=== PATIENT | male | born 1980 | race Two or more races ===

== ENCOUNTER 2017-02-28 15:06 | Emergency (ER) | payer MEDICAID ==
--- NOTE | 2017-02-28 15:24 | Emergency Department Record ---
History of Present Illness - General Chief Complaint: Seizures Stated Complaint: SEIZURE Time Seen by Provider: 02/28/17 15:19 Source: Patient, EMS Mode of Arrival: EMS Limitations: No limitations - History of Present Illness Initial Comments: 36 yo male presents after a witness seizure. He was on the floor. He was given Versed by EMS. On arrival he is speaking. He doesn't recall the events. He denies and pain. He states he has had seizures "a long time". He states his last seizure was months ago. He does not recall his doctor. Family not present on arrival. No urinary incontinence. MD Complaint: Seizure Onset/Timin -: Minutes(s) Description of Episode: Bladder incontinence Duration of Episode: 2 -: Minutes(s) Witnessed: Yes - by bystander Seizure History: Known seizure disorder Place: Home Possible Precipitating Event: None Treatments Prior to Arrival: Benzodiazepines - [place] Coma Scale Eye Response: (4) Open spontaneously Motor Response: (6) Obeys commands Verbal Response: (5) Oriented [place] Total: 15 - Related Data Home Medications Medication Instructions Recorded Confirmed Last Taken Lamotrigine [Lamictal] 200 mg PO DAILY 08/09/14 02/28/17 1 Day Ago ~02/27/17 Lurasidone HCl [Latuda] 80 mg PO QD tab 05/19/16 02/28/17 1 Day Ago ~02/27/17 Topiramate [Topamax] 150 mg PO DAILY tab 05/19/16 02/28/17 1 Day Ago ~02/27/17 Alprazolam [Xanax] 1 mg PO QHS 02/28/17 02/28/17 1 Day Ago ~02/27/17 Allergies Allergy/AdvReac Type Severity Reaction Status Date / Time No Known Drug Allergies Allergy Verified 02/28/17 15:14 Travel Screening - Travel/Exposure Within Last 30 Days Have you traveled within the last 30 days?: No - Travel/Exposure Within Last Year Have you traveled outside the [place] in the last year?: No - Additonal Travel Details Have you been exposed to anyone with a communicable illness?: No - Travel Symptoms Symptom Screening: None Review of Systems Constitutional: Denies: Chills, Fever, Malaise, Weakness Eyes: Denies: Eye discharge ENT: Denies: Congestion Respiratory: Denies: Cough, Dyspnea Cardiovascular: Denies: Chest pain, Syncope Endocrine: Denies: Fatigue Gastrointestinal: Denies: Abdominal pain, Diarrhea, Nausea, Vomiting Genitourinary: Denies: Incontinence, Retention Musculoskeletal: Denies: Arthralgia, Back pain, Myalgia Skin: Denies: Bruising, Change in color, Rash Neurological: Denies: Headache Psychiatric: Denies: Anxiety Hematological/Lymphatic: Denies: Blood Clots, Easy bleeding, Easy bruising, Swollen glands Past Medical History - SOCIAL HISTORY Smoking Status: Light tobacco smoker (<10/day) Alcohol Use: None Drug Use: None - RESPIRATORY Hx Respiratory Disorders: No - CARDIOVASCULAR Hx Cardio Disorders: No - NEURO Hx Neuro Disorders: Yes Hx Seizures: Yes (last one before todays was months) - GI Hx GI Disorders: No - Hx Genitourinary Disorders: No - ENDOCRINE Hx Endocrine Disorders: No - MUSCULOSKELETAL Hx Musculoskeletal Disorders: No - PSYCH Hx Psych Problems: Yes Hx Anxiety: Yes Hx Depression: Yes - HEMATOLOGY/ONCOLOGY Hx Hematology/Oncology Disorders: No Family Medical History Any Significant Family History?: Yes Hx Diabetes: Father, Grandparents Physical Exam - General General Appearance: Alert, Oriented x3, Cooperative Limitations: Altered mental status (mild post ictal still) - Head Head exam: Atraumatic, Normocephalic, Normal inspection - Eye Eye exam: Normal appearance, Conjunctival injection. negative: Periorbital swelling - ENT ENT exam: Normal exam, Mucous membranes moist Ear exam: Normal external inspection Nasal Exam: Normal inspection Mouth exam: Normal external inspection Teeth exam: Normal inspection - Neck Neck exam: Normal inspection, Full ROM. negative: Tenderness - Respiratory Respiratory exam: Normal lung sounds bilaterally. negative: Respiratory distress - Cardiovascular Cardiovascular Exam: Regular rate, Normal rhythm, Normal heart sounds - GI/Abdominal GI/Abdominal exam: Soft. negative: Tenderness - Rectal Rectal exam: Deferred - exam: Deferred - Extremities Extremities exam: Normal inspection. negative: Pedal edema - Back Back exam: Reports: Normal inspection - Neurological Neurological exam: Alert, Normal gait, Oriented X3, Reflexes normal - Psychiatric Psychiatric exam: Normal affect, Normal mood. negative: Agitated, Anxious - Skin Skin exam: Dry, Intact, Normal color, Warm Course Vital Signs 02/28/17 15:07 Pulse Rate 117 H Respiratory 22 Rate Blood Pressure 132/81 Pulse Ox 99 - Reevaluation(s) Reevaluation #1: EMR reviewed Multiple prior visits for his seizures on EMR. 02/28/17 15:24 Reevaluation #2: The patient was rechecked. he is answering all questions but not states has a headache. His left arm shakes but he is alert, no confusion, lifts hand to point to painful area on head. He states his neurologist is at [facility]. 02/28/17 15:41 02/28/17 16:07 On recheck the patient will still answer questions appropriate but he still has a tremor or shake to the left arm that he states he can not control which is delaying CT. He remains awake during this shaking. His fiance Monica called. She reports that he does have a prior history of head injury. Reevaluation #3: Labs reviewed No acute changes on the CBC HCO3 18 CW seizure. 02/28/17 16:31 02/28/17 17:19 The patient returned form CT and had a witnessed 1 minute generalized seizure Ativan and Fosphenytoin ordered 02/28/17 17:27 The HCT was negative for acute process 02/28/17 17:35 No visible current seizure activity Family requests [facility] for transfer [facility] Contacted. Reevaluation #4: The patient nodded his head and had purposeful movement with arms. Dr Awad accept the patient in the ED 02/28/17 17:52 Reevaluation #5: On recheck the patient is alert, speaking in full sentences, NO confusion. EMS ready for transfer He is the most alert at this time than compared to earlier Stable for transfer 02/28/17 18:21 Medical Decision Making - Lab Data Result diagrams: 02/28/17 13:20 02/28/17 13:20 Disposition Disposition: Transfer Clinical Impression: Seizures Disposition: Acute Care Hospital Transfer Transfer To: [facility] Reason For Transfer: Status Epilepticus Accepting Physician: Molly Awad Time Discussed w/Accepting Physician: 17:47 Condition: (3) Guarded Forms: Patient Portal Access Time of Disposition: 17:28 Quality - Quality Measures Quality Measures: N/A - Blood Pressure Screening View Details: Yes Blood Pressure Classification: Pre-Hypertensive BP Reading Systolic Measurement: 132 Diastolic Measurement: 81 Screening for High Blood Pressure: < Pre-Hypertensive BP, F/U Documented > [ G8950] Pre-Hypertensive Follow-up Interventions: Referral to alternative/primary care provider.
[2017-02-28] MEDS: 0.9 % SODIUM CHLORIDE 1,000 ML BAG IV ONE (15:25)
[2017-02-28 15:31] LABS: BASO % 0.3 % (0-6); EOS % 0.2 % (0-6); GRAN % 65.9 % (47-80); HEMATOCRIT 44.4 % (42.0-52.0); LYMPH % 26.9 % (16-45); MEAN CELL VOLUME 87.4 fl (81-97); MEAN CORPUSCULAR HEMOGLOBIN 31.5 pg (27-33); MEAN PLATELET VOLUME 9.8 fl (7.4-10.4); MONO % 6.7 % (0-9); PLATELET COUNT 387 K/uL (130-400); RED BLOOD COUNT 5.08 M/uL (4.40-5.70); RED CELL DISTRIBUTION WIDTH 12.9 % (11.5-14.5); WHITE BLOOD COUNT W/O DIFF 9.4 K/uL (4.2-12.2)
[2017-02-28 15:45] LABS: LACTIC ACID 4.6 mmol/L (0.7-2.1)
[2017-02-28] MEDS: LORAZEPAM 2 MG/ML VIAL IV ONE ×3 (15:46→17:44)
[2017-02-28 15:47] LABS: ALB/GLOB RATIO 1.6 (1.1-1.8); ALBUMIN 4.7 gm/dL (3.5-5.0); ALT/SGPT 64 U/L (21-72); AST/SGOT 35 U/L (17-59); BLOOD UREA NITROGEN 13 mg/dL (9-20); EST GLOMERULAR FILTRATION RATE > 60 ml/min; GLUCOSE,RANDOM 100 mg/dL (70-110); PARTIAL THROMBOPLASTIN TIME 30.5 SECONDS (24.5-39.1); PROTHROMBIN TIME (PATIENT) 10.8 SECONDS (9.5-12.1); TOTAL PROTEIN 7.7 gm/dL (6.3-8.2)
[2017-02-28 15:48] LABS: ALKALINE PHOSPHATASE 111 U/L (38-126)
[2017-02-28] MEDS: FOSPHENYTOIN SODIUM 500 MG/10 ML IV ONE (17:42)
[2017-02-28] MEDS: ACETAMINOPHEN 1,000 MG/100 ML BTL IVPB ONE (18:27)
--- NOTE | 2017-03-02 11:41 | CT SCAN REPORT ---
EXAM: HEAD CT WITHOUT CONTRAST HISTORY: HEAD INJURY WITH SEIZURE, UNRESPONSIVE. TECHNIQUE: Axial CT scan of the head was performed without IV contrast. Comparison: Head CT 09/09/15. Encounter: Initial. FINDINGS: No definite acute intracranial hemorrhage identified. No focal mass effect or midline shift apparent. No definite acute infarct or intracranial mass lesion is seen. Some membrane thickening inferiorly in the visualized left maxillary antrum. No depressed calvarial fracture is evident. IMPRESSION: 1. NO DEFINITE ACUTE INTRACRANIAL HEMORRHAGE OR FOCAL MASS EFFECT EVIDENT. 2. SOME MEMBRANE THICKENING INFERIORLY IN THE LEFT MAXILLARY ANTRUM. JOB NUMBER: [id number] MTDD
== END 2017-02-28 18:35 | disposition short-term general hospital (02) ==
LOC: ER 15:06
DX: G40.901 Epilepsy, unspecified, not intractable, with status epilepticus (principal); R51 Headache
CPT/HCPCS: 99285 ×2; 96376; 96374; 96375; 96361; 83605; 85025; 85730; 85610; 80053; 70450; Q2009; J2060; J7030

== ENCOUNTER 2017-10-07 09:52 | Emergency (ER) | payer SELFPAY ==
--- NOTE | 2017-10-07 10:00 | Emergency Department Record ---
History of Present Illness - General Chief Complaint: Laceration(s) Stated Complaint: RIGHT HAND LAC Time Seen by Provider: 10/07/17 09:57 Source: Patient Mode of Arrival: Ambulatory Limitations: No limitations - History of Present Illness Initial Commments: 36 yo male presents after injuring his right hand on sheet metal at work. He sliced the palm on an exposed edge of the metal. No loss of ROM or sensation. He is unsure of the last tetanus update. No other injuries. -: Minutes(s) Extremity Location: Right: Hand Place: Work Context: Accidental Associated Symptoms: None - [place] Coma Scale Eye Response: (4) Open spontaneously Motor Response: (6) Obeys commands Verbal Response: (5) Oriented [place] Total: 15 - Related Data Previous Rx's Medication Instructions Recorded Cephalexin [Keflex] 500 mg PO TID #21 cap 10/07/17 Hydrocodone/Acetaminophen [[place]uss[place] 1 each PO Q6H #15 tablet 10/07/17 5-325 Tablet] Allergies Allergy/AdvReac Type Severity Reaction Status Date / Time No Known Drug Allergies Allergy Verified 10/07/17 10:05 Review of Systems Constitutional: Denies: Chills, Fever, Malaise, Weakness Eyes: Denies: Eye discharge ENT: Denies: Congestion, Ear pain Respiratory: Denies: Cough Cardiovascular: Denies: Chest pain Endocrine: Denies: Fatigue Gastrointestinal: Denies: Abdominal pain, Diarrhea, Nausea, Vomiting Genitourinary: Denies: Dysuria, Frequency Musculoskeletal: Reports: Myalgia. Denies: Arthralgia, Back pain Skin: Reports: Other (Laceration). Denies: Bruising, Change in color, Rash Neurological: Denies: Headache Psychiatric: Denies: Anxiety Hematological/Lymphatic: Denies: Easy bleeding, Easy bruising, Swollen glands Past Medical History - SOCIAL HISTORY Smoking Status: Light tobacco smoker (<10/day) Drug Use: None - RESPIRATORY Hx Respiratory Disorders: No - CARDIOVASCULAR Hx Cardio Disorders: No - NEURO Hx Neuro Disorders: Yes Hx Seizures: Yes (last one before todays was months) - GI Hx GI Disorders: No - Hx Genitourinary Disorders: No - ENDOCRINE Hx Endocrine Disorders: No - MUSCULOSKELETAL Hx Musculoskeletal Disorders: No - PSYCH Hx Psych Problems: Yes Hx Anxiety: Yes Hx Depression: Yes - HEMATOLOGY/ONCOLOGY Hx Hematology/Oncology Disorders: No Family Medical History Hx Diabetes: Father, Grandparents Physical Exam - General General Appearance: Alert, Oriented x3, Cooperative, No acute distress Limitations: No limitations - Head Head exam: Normal inspection - Eye Eye exam: Normal appearance - ENT ENT exam: Normal exam Ear exam: Normal external inspection Nasal Exam: Normal inspection Mouth exam: Normal external inspection - Neck Neck exam: Normal inspection - Respiratory Respiratory exam: Normal lung sounds bilaterally. negative: Respiratory distress - Cardiovascular Cardiovascular Exam: Regular rate, Normal rhythm, Normal heart sounds Peripheral Pulses: 2+: Radial (R) - Rectal Rectal exam: Deferred - exam: Deferred - Extremities Extremities exam: Normal capillary refill, Other (5cm laceration). negative: Normal inspection Image of Hand: 1 - 5cm linear laceration, clean, no visible FB - Neurological Neurological exam: Alert, Oriented X3. negative: Motor sensory deficit - Psychiatric Psychiatric exam: Normal affect, Normal mood - Skin Skin exam: Dry, Intact, Normal color, Warm Course - Reevaluation(s) Reevaluation #1: Procedure 5 cm palm laceration Lidocaine with 4ml local ShurClens soak Followed by 500 ml NS irrigation The wound was explored to the base in bloodless field No FB No tendon injury visible through full ROM Prolene 3-0 suture used #10 Good wound approximation after suture remains with full index and thumb ROM, apposition of thumb to all fingers. We discussed risks and healing We discussed signs and symptoms of infection and reasons to return to the ED 10/07/17 10:32 Disposition Disposition: Discharge Clinical Impression: Hand laceration Disposition: Home, Self-Care Condition: (1) Good Instructions: Laceration (ED) Additional Instructions: Return to the ER for a laceration check if you have any pain, redness, pus, or any concerns about infection Take the Keflex as directed No lifting or work with the right hand until the sutures are removed Use the splint for support and comfort You may take it off daily to clean the hand Prescriptions: Cephalexin [Keflex] 500 mg PO TID #21 cap Hydrocodone/Acetaminophen [Husser 5-325 Tablet] 1 each PO Q6H #15 tablet Forms: Patient Portal Access Time of Disposition: 10:57 Quality - Quality Measures Quality Measures: N/A - Blood Pressure Screening Does Patient Have Any of the Following: No Blood Pressure Classification: Hypertensive Reading Systolic Measurement: 141 Diastolic Measurement: 77 Screening for High Blood Pressure: < Pre-Hypertensive BP, F/U Documented > [ G8950] Pre-Hypertensive Follow-up Interventions: Referral to alternative/primary care provider.
[2017-10-07] MEDS ORDERED: IBUPROFEN 600 MG TABLET PO ONE (10:16)
[2017-10-07] MEDS ORDERED: HYDROCODONE/APAP 7.5/325MG TABLET PO ONE (10:32)
[2017-10-07] MEDS ORDERED: CEPHALEXIN 500 MG CAPSULE PO STA (10:56)
[2017-10-07] MEDS ORDERED: Diph,Pert(Acell),Tet Vac 0.5 ML SYR IM ONE (10:56)
== END 2017-10-07 11:38 | disposition home or self-care (01) ==
LOC: ER 09:52
DX: S61.411A Laceration without foreign body of right hand, initial encounter (principal); F17.210 Nicotine dependence, cigarettes, uncomplicated; W45.8XXA Other foreign body or object entering through skin, initial encounter; Y92.63 Factory as the place of occurrence of the external cause; Y99.0 Civilian activity done for income or pay
CPT/HCPCS: 12002; 90715; 96372; 99283

== ENCOUNTER 2017-10-12 13:13 | Emergency (ER) | payer SELFPAY ==
[2017-10-12] MEDS ORDERED: HYDROCODONE/APAP 5/325MG TABLET PO ONE (14:54)
[2017-10-12] MEDS ORDERED: AMOXICILLIN/POTASSIUM CLAV 875MG/125MG TABLET PO ONE (14:55)
--- NOTE | 2017-10-12 15:27 | Emergency Department Record ---
History of Present Illness - General Chief Complaint: Wound, check Stated Complaint: RT HAND SUTURES BLEEDING/PAIN Time Seen by Provider: 10/12/17 13:26 Source: Patient Mode of arrival: Ambulatory Limitations: No limitations - History of Present Illness Initial Comments: pt had sutures placed 5 days ago in a 5cm laceration on his r palm. he finished his abx and is c/o increased pain and swelling and drainage. MD Complaint: Wound re-check Onset/Timin -: Days(s) Initial Visit For: Laceration Returns Today for: Wound recheck Symptoms Since Prior Visit: Worsening pain, Other Treatments Prior to Arrival: Given antibiotics on initial visit - Related Data Previous Rx's Medication Instructions Recorded Cephalexin [Keflex] 500 mg PO TID #21 cap 10/07/17 Hydrocodone/Acetaminophen [[place] 1 each PO Q6H #15 tablet 10/07/17 5-325 Tablet] Amoxicillin/Potassium Clav 1 each PO BID #14 tablet 10/12/17 [Augmentin 875Mg/125Mg] Hydrocodone/Acetaminophen [[place] 1 each PO Q6HR #6 tablet 10/12/17 5-325 Tablet] Allergies Allergy/AdvReac Type Severity Reaction Status Date / Time No Known Drug Allergies Allergy Verified 10/12/17 13:18 Travel Screening - Travel/Exposure Within Last 30 Days Have you traveled within the last 30 days?: No - Travel/Exposure Within Last Year Have you traveled outside the [place] in the last year?: No - Additonal Travel Details Have you been exposed to anyone with a communicable illness?: No - Travel Symptoms Symptom Screening: None Review of Systems Reviewed: No additional complaints except as noted below Constitutional: Reports: As per HPI. Denies: Chills, Fever, Malaise, Night sweats, Weakness, Weight change Eyes: Reports: As per HPI. Denies: Eye discharge, Eye pain, Photophobia, Vision change ENT: Reports: As per HPI. Denies: Congestion, Dental pain, Ear pain, Epistaxis , Hearing loss, Throat pain Respiratory: Reports: As per HPI. Denies: Cough, Dyspnea, Hemoptysis, Stridor, Wheezes Cardiovascular: Reports: As per HPI. Denies: Arrhythmia, Chest pain, Dyspnea on exertion, Edema, Murmurs, Orthopnea, Palpitations, Paroxysmal nocturnal dyspnea, Rheumatic Fever, Syncope Endocrine: Reports: As per HPI. Denies: Fatigue, Heat or cold intolerance, Polydipsia, Polyuria Gastrointestinal: Reports: As per HPI. Denies: Abdominal pain, Constipation, Diarrhea, Hematemesis, Hematochezia, Melena, Nausea, Vomiting Genitourinary: Reports: As per HPI. Denies: Dysuria, Frequency, Hematuria, Incontinence, Retention, Testicular pain, Testicular mass, Urgency Musculoskeletal: Reports: As per HPI. Denies: Arthralgia, Back pain, Gout, Joint swelling, Myalgia, Neck pain Skin: Reports: As per HPI. Denies: Bruising, Change in color, Change in hair/ nails, Lesions, Pruritus, Rash Neurological: Reports: As per HPI. Denies: Abnormal gait, Confusion, Headache, Numbness, Paresthesias, Seizure, Tingling, Tremors, Vertigo, Weakness Psychiatric: Reports: As per HPI. Denies: Anxiety, Auditory hallucinations, Depression, Homicidal thoughts, Suicidal thoughts, Visual hallucinations Hematological/Lymphatic: Reports: As per HPI. Denies: Anemia, Blood Clots, Easy bleeding, Easy bruising, Swollen glands Past Medical History - SOCIAL HISTORY Smoking Status: Former smoker Alcohol Use: None Drug Use: None - RESPIRATORY Hx Respiratory Disorders: No - CARDIOVASCULAR Hx Cardio Disorders: No - NEURO Hx Neuro Disorders: Yes Hx Seizures: Yes (last one before todays was months) - GI Hx GI Disorders: No - Hx Genitourinary Disorders: No - ENDOCRINE Hx Endocrine Disorders: No - MUSCULOSKELETAL Hx Musculoskeletal Disorders: No - PSYCH Hx Psych Problems: Yes Hx Anxiety: Yes Hx Depression: Yes - HEMATOLOGY/ONCOLOGY Hx Hematology/Oncology Disorders: No Family Medical History Any Significant Family History?: Yes Hx Diabetes: Father, Grandparents Physical Exam - General General Appearance: Alert, Oriented x3, Cooperative, No acute distress - Head Head exam: Normal inspection - Eye Eye exam: Normal appearance, PERRL, EOMI Pupils: Normal accommodation - ENT ENT exam: Normal exam, Mucous membranes moist, Normal external ear exam, Normal orophraynx Ear exam: Normal external inspection. negative: External canal tenderness Nasal Exam: Normal inspection. negative: Discharge, Sinus tenderness Mouth exam: Normal external inspection, Tongue normal Teeth exam: Normal inspection. negative: Dental caries Throat exam: Normal inspection. negative: Tonsillar erythema, Tonsillar exudate - Neck Neck exam: Normal inspection, Full ROM. negative: Tenderness - Respiratory Respiratory exam: Normal lung sounds bilaterally. negative: Respiratory distress - Cardiovascular Cardiovascular Exam: Regular rate, Normal rhythm, Normal heart sounds - GI/Abdominal GI/Abdominal exam: Soft, Normal bowel sounds. negative: Tenderness - Rectal Rectal exam: Deferred - exam: Deferred - Extremities Extremities exam: Normal inspection, Full ROM, Normal capillary refill, Tenderness Image of Hand: 1 - 10 sutures, swelling, erythema, tenderness - Back Back exam: Reports: Normal inspection, Full ROM. Denies: Muscle spasm, Rash noted, Tenderness - Neurological Neurological exam: Alert, CN II-XII intact, Normal gait, Oriented X3, Reflexes normal - Psychiatric Psychiatric exam: Normal affect, Normal mood - Skin Skin exam: Dry, Intact, Normal color, Warm Course Vital Signs 10/12/17 13:25 Temperature 97.9 F Pulse Rate 82 Respiratory 20 Rate Blood Pressure 138/88 Pulse Ox 98 - Reevaluation(s) Reevaluation #1: 10/12/17 15:30 d/w dr [place] Reevaluation #2: 10/12/17 15:30 2 sutures removed Disposition Disposition: Discharge Clinical Impression: Encounter for wound re-check, Wound infection, posttraumatic Disposition: Home, Self-Care Condition: (1) Good Instructions: Wound Infection (ED) Additional Instructions: follow up with family doctor . return sooner if worse. keep clean. Prescriptions: Hydrocodone/Acetaminophen [[place] 5-325 Tablet] 1 each PO Q6HR #6 tablet Amoxicillin/Potassium Clav [Augmentin 875Mg/125Mg] 1 each PO BID #14 tablet Forms: Patient Portal Access, Return to Work/School Quality - Quality Measures Quality Measures: N/A - Blood Pressure Screening Does Patient Have Any of the Following: No Blood Pressure Classification: Pre-Hypertensive BP Reading Systolic Measurement: 138 Diastolic Measurement: 88 Screening for High Blood Pressure: < Pre-Hypertensive BP, F/U Documented > [ G8950] Pre-Hypertensive Follow-up Interventions: Follow-up with rescreen every year.
--- NOTE | 2017-10-14 08:19 | RADIOLOGY REPORT ---
EXAM: RIGHT HAND HISTORY: SLICED RIGHT HAND WITH METAL FIVE DAYS AGO WITH STITCHES AT BASE OF RIGHT THUMB. POSSIBLE FOREIGN BODY. TECHNIQUE: Four views of the right hand were obtained. Comparison: No prior right hand series. Encounter: Initial. FINDINGS: The right hand appears intact with no fracture or dislocation seen. No definite opaque foreign body identified although some foreign bodies will be radiographically indistinguishable from the adjacent soft tissues. IMPRESSION: NO DEFINITE FRACTURE OR OPAQUE FOREIGN BODY IDENTIFIED IN THE RIGHT HAND. JOB NUMBER: [id number] [facility]
== END 2017-10-12 16:09 | disposition home or self-care (01) ==
LOC: ER 13:13
DX: T81.4XXA Infection following a procedure, initial encounter (principal); M25.541 Pain in joints of right hand; G40.909 Epilepsy, unspecified, not intractable, without status epilepticus; Z87.891 Personal history of nicotine dependence
CPT/HCPCS: 99283

== ENCOUNTER 2017-10-18 16:29 | Emergency (ER) | payer SELFPAY ==
--- NOTE | 2017-10-18 16:56 | Emergency Department Record ---
History of Present Illness - General Chief Complaint: Suture removal Stated Complaint: SUTURE REMOVAL/RT HAND Time Seen by Provider: 10/18/17 16:50 Source: Patient Mode of arrival: Ambulatory Limitations: No limitations - History of Present Illness Initial Comments: The patient is here for suture removal. He denies any problems. Complaint: Suture/staple removal Initial Visit For: Laceration Returns Today for: Staple/stitch removal Symptoms Since Prior Visit: No new symptoms Associated Symptoms: None Treatments Prior to Arrival: Dressings - Related Data Previous Rx's Medication Instructions Recorded Cephalexin [Keflex] 500 mg PO TID #21 cap 10/07/17 Hydrocodone/Acetaminophen [[place] 1 each PO Q6H #15 tablet 10/07/17 5-325 Tablet] Hydrocodone/Acetaminophen [[place] 1 each PO Q6HR #6 tablet 10/12/17 5-325 Tablet] Allergies Allergy/AdvReac Type Severity Reaction Status Date / Time No Known Drug Allergies Allergy Verified 10/18/17 16:45 Travel Screening - Travel/Exposure Within Last 30 Days Have you traveled within the last 30 days?: No Past Medical History - SOCIAL HISTORY Smoking Status: Former smoker Alcohol Use: None Drug Use: None - RESPIRATORY Hx Respiratory Disorders: No - CARDIOVASCULAR Hx Cardio Disorders: No - NEURO Hx Neuro Disorders: Yes Hx Seizures: Yes - GI Hx GI Disorders: No - Hx Genitourinary Disorders: No - ENDOCRINE Hx Endocrine Disorders: No - MUSCULOSKELETAL Hx Musculoskeletal Disorders: No - PSYCH Hx Psych Problems: Yes Hx Anxiety: Yes Hx Depression: Yes - HEMATOLOGY/ONCOLOGY Hx Hematology/Oncology Disorders: No Family Medical History Any Significant Family History?: Yes Hx Diabetes: Father, Grandparents Physical Exam - General General Appearance: Alert, Cooperative, No acute distress - Extremities Extremities exam: Normal inspection (The Lac is well healed. The sutures were removed with no difficulty or complications.) Course Vital Signs 10/18/17 16:45 Temperature 98.7 F Pulse Rate 92 H Respiratory 18 Rate Blood Pressure 137/97 Pulse Ox 98 Disposition Disposition: Discharge Clinical Impression: Visit for suture removal Disposition: Home, Self-Care Condition: (2) Stable Instructions: Stitches Removal (ED) Additional Instructions: Return to the ER for any problems. Forms: Patient Portal Access Time of Disposition: 16:56 Quality - Quality Measures Quality Measures: N/A - Blood Pressure Screening View Details: Yes Does Patient Have Any of the Following: No Blood Pressure Classification: Hypertensive Reading Systolic Measurement: 137 Diastolic Measurement: 97 Screening for High Blood Pressure: < First Hypertensive BP, F/U Documented > [ G8950] First Hypertensive Follow-up Interventions: Referral to alternative/primary care provider.
== END 2017-10-18 17:23 | disposition home or self-care (01) ==
LOC: ER 16:29
DX: Z48.02 Encounter for removal of sutures (principal)

== ENCOUNTER 2018-09-04 22:01 | Emergency (ER) | payer BC ==
--- NOTE | 2018-09-04 22:51 | Emergency Department Record ---
History of Present Illness - General Chief Complaint: Abdominal Pain Stated Complaint: SHARP PAIN LT SIDE Time Seen by Provider: 09/04/18 22:49 Source: Patient Mode of Arrival: Ambulatory - History of Present Illness Initial Comments: The patient states he has had left sided rib pain for the past month. Today it worsened after stretching. He states that stretching usually helps but it is worsened tonight to the point of him being sweaty when he was home, and unable to move his left arm due to movement making his ribs hurt more. He states, "it feels like a muscle spasm." He denies any trauma now or in the past month. He has pectus excavatum since and scoliosis noted on his xrays. Onset/Timin -: Month(s) Severity scale (1-10): 10 Quality: Sharp Consistency: Constant, Getting worse - Related Data Previous Rx's Medication Instructions Recorded Cyclobenzaprine HCl [Flexeril] 10 mg PO TID #15 tablet 09/04/18 Allergies Allergy/AdvReac Type Severity Reaction Status Date / Time No Known Drug Allergies Allergy Verified 09/04/18 22:12 Travel Screening - Travel/Exposure Within Last 30 Days Have you traveled within the last 30 days?: No - Travel/Exposure Within Last Year Have you traveled outside the [place] in the last year?: No - Additonal Travel Details Have you been exposed to anyone with a communicable illness?: No - Travel Symptoms Symptom Screening: None Review of Systems Reviewed: No additional complaints except as noted below Constitutional: Reports: As per HPI. Denies: Chills, Fever, Malaise, Night sweats, Weakness, Weight change Eyes: Reports: As per HPI. Denies: Eye discharge, Eye pain, Photophobia, Vision change ENT: Reports: As per HPI. Denies: Congestion, Dental pain, Ear pain, Epistaxis , Hearing loss, Throat pain Respiratory: Reports: As per HPI. Denies: Cough, Dyspnea, Hemoptysis, Stridor, Wheezes Cardiovascular: Reports: As per HPI. Denies: Arrhythmia, Chest pain, Dyspnea on exertion, Edema, Murmurs, Orthopnea, Palpitations, Paroxysmal nocturnal dyspnea, Rheumatic Fever, Syncope Endocrine: Reports: As per HPI. Denies: Fatigue, Heat or cold intolerance, Polydipsia, Polyuria Gastrointestinal: Reports: As per HPI. Denies: Abdominal pain, Constipation, Diarrhea, Hematemesis, Hematochezia, Melena, Nausea, Vomiting Genitourinary: Reports: As per HPI. Denies: Dysuria, Frequency, Hematuria, Incontinence, Retention, Testicular pain, Testicular mass, Urgency Musculoskeletal: Reports: As per HPI. Denies: Arthralgia, Back pain, Gout, Joint swelling, Myalgia, Neck pain Skin: Reports: As per HPI. Denies: Bruising, Change in color, Change in hair/ nails, Lesions, Pruritus, Rash Neurological: Reports: As per HPI. Denies: Abnormal gait, Confusion, Headache, Numbness, Paresthesias, Seizure, Tingling, Tremors, Vertigo, Weakness Psychiatric: Reports: As per HPI. Denies: Anxiety, Auditory hallucinations, Depression, Homicidal thoughts, Suicidal thoughts, Visual hallucinations Hematological/Lymphatic: Reports: As per HPI. Denies: Anemia, Blood Clots, Easy bleeding, Easy bruising, Swollen glands Past Medical History - SOCIAL HISTORY Smoking Status: Former smoker Alcohol Use: Occasional Drug Use: None - RESPIRATORY Hx Respiratory Disorders: No - CARDIOVASCULAR Hx Cardio Disorders: No - NEURO Hx Neuro Disorders: Yes Hx Seizures: Yes - GI Hx GI Disorders: No - Hx Genitourinary Disorders: No - ENDOCRINE Hx Endocrine Disorders: No - MUSCULOSKELETAL Hx Musculoskeletal Disorders: No - PSYCH Hx Psych Problems: Yes Hx Anxiety: Yes Hx Depression: Yes - HEMATOLOGY/ONCOLOGY Hx Hematology/Oncology Disorders: No Family Medical History Any Significant Family History?: No Hx Diabetes: Father, Grandparents Physical Exam - General General Appearance: Alert, Oriented x3, Cooperative, Moderate distress ( splinting holding left chest ) - Head Head exam: Normal inspection - Eye Eye exam: Normal appearance, PERRL, EOMI. negative: Conjunctival injection, Nystagmus Pupils: Normal accommodation - ENT ENT exam: Normal exam, Mucous membranes moist, Normal external ear exam, Normal orophraynx, TM's normal bilaterally Ear exam: Normal external inspection. negative: External canal tenderness Nasal Exam: Normal inspection. negative: Discharge, Sinus tenderness Mouth exam: Normal external inspection, Tongue normal Teeth exam: Normal inspection. negative: Dental caries Throat exam: Normal inspection. negative: Tonsillar erythema, Tonsillar exudate - Neck Neck exam: Normal inspection, Full ROM. negative: Lymphadenopathy, Meningismus , Tenderness - Respiratory Respiratory exam: Normal lung sounds bilaterally, Chest wall tenderness (left ribs tender laterally to minimal palpation over 4 levels mid thoracic around to anterior chest left side of sternum. No skin lesion, contusions, ecchymosis, crepitance or sub Q emphysema.), Other (Marked pectus excavatum noted). negative: Accessory muscle use, Respiratory distress - Cardiovascular Cardiovascular Exam: Normal rhythm, Normal heart sounds, Tachycardia - GI/Abdominal GI/Abdominal exam: Soft, Normal bowel sounds. negative: Tenderness - Rectal Rectal exam: Deferred - exam: Deferred - Extremities Extremities exam: Normal inspection, Full ROM, Normal capillary refill. negative: Calf tenderness, Pedal edema, Tenderness - Back Back exam: Reports: Normal inspection, Full ROM. Denies: Muscle spasm, Rash noted, Tenderness - Neurological Neurological exam: Alert, CN II-XII intact, Normal gait, Oriented X3, Reflexes normal. negative: Motor sensory deficit - Psychiatric Psychiatric exam: Normal affect, Normal mood - Skin Skin exam: Dry, Intact, Normal color, Warm Course Vital Signs 09/04/18 22:10 Temperature 98.1 F Pulse Rate [ 100 H Pulse Ox Probe] Respiratory 24 Rate Blood Pressure 142/106 [Left Arm] Pulse Ox 95 - Reevaluation(s) Reevaluation #1: After toradol and norflex patient is now able to sit upright and is no longer leaning to the side. he states he is 7/10, improved from a 10/10. Will send him home with flexeril as needed. with PCP follow up, tylenol alternated with ibuprofen. 09/04/18 23:45 Medical Decision Making - Management Options MDM Management: No Additional Work-up Planned - Data Complexity MDM Data: X-Ray Ordered and/or Reviewed (No fracture seen. Levoconvex mid- throacic scoliosis, atelectasis left lowest lateral lung, vs. scarring or infiltrate.) Disposition Disposition: Discharge Clinical Impression: Rib pain on left side, Pectus excavatum Left-sided thoracic back pain Qualifiers: Chronicity: acute Qualified Code(s): M54.6 - Pain in thoracic spine Disposition: Home, Self-Care Condition: (2) Stable Instructions: Thoracic Pain (ED), Chronic Back Pain (ED) Additional Instructions: No lifting with arms. Flexeril as directed as needed for muscle spasm. May cause drowsiness. tylenol alternated with ibuprofen as directed as needed for pain. Follow up with PCP in office for recheck. Prescriptions: Cyclobenzaprine HCl [Flexeril] 10 mg PO TID #15 tablet Quality - Quality Measures Quality Measures: N/A - Blood Pressure Screening Does Patient Have Any of the Following: No Blood Pressure Classification: Hypertensive Reading Systolic Measurement: 142 Diastolic Measurement: 106 Screening for High Blood Pressure: < Pre-Hypertensive BP, F/U Documented > [ G8950] Pre-Hypertensive Follow-up Interventions: Follow-up with rescreen every year.
[2018-09-04] MEDS ORDERED: ORPHENADRINE CITRATE 60MG/2ML VIAL IM ONE (23:04)
[2018-09-04] MEDS ORDERED: KETOROLAC 30 MG/ML VIAL IM ONE (23:04)
--- NOTE | 2018-09-06 09:13 | RADIOLOGY REPORT ---
EXAM: LEFT RIBS WITH PA CHEST HISTORY: LEFT SIDED RIB PAIN FOR THREE WEEKS. NO KNOWN INJURY. PAIN WORSENED SIGNIFICANTLY TODAY. TECHNIQUE: AP and oblique views of the left ribs are obtained as well as an upright PA view of the chest. Comparison: None. FINDINGS: There is normal bone mineralization. No definite acute fracture nor destructive bone lesion is seen. The heart is not enlarged. No pulmonary venous hypertension is seen. The lung volumes are somewhat low. There is mild linear atelectasis versus scarring in the lateral left lung base. The lungs and pleural spaces are otherwise clear. There is mild levoconvex curvature of the mid to lower thoracic spine. IMPRESSION: 1. NO ACUTE LEFT RIB FRACTURE NOR DESTRUCTIVE BONE LESION. 2. MINOR LINEAR SCARRING VERSUS ATELECTASIS IN THE LATERAL LEFT LUNG BASE. 3. MILD LEVOCONVEX CURVATURE OF THE MID TO LOWER THORACIC SPINE. JOB NUMBER: [id number] [facility]
== END 2018-09-04 23:55 | disposition home or self-care (01) ==
LOC: ER 22:01
DX: R07.81 Pleurodynia (principal); M54.6 Pain in thoracic spine; Q67.6 Pectus excavatum; Z87.891 Personal history of nicotine dependence
CPT/HCPCS: 96372; 99283; 99284; J1885; J2360

== ENCOUNTER 2019-07-11 13:39 | Emergency (ER) | payer BC ==
[2019-07-11] MEDS ORDERED: 0.9 % SODIUM CHLORIDE 1,000 ML BAG IV ONE ×2 (13:59→15:58)
--- NOTE | 2019-07-11 13:59 | Emergency Department Record ---
History of Present Illness - General Chief Complaint: Fall Injury Stated Complaint: DIZZY Time Seen by Provider: 07/11/19 13:45 Source: Patient, Family Mode of Arrival: EMS Limitations: No limitations - History of Present Illness Initial Comments: The patient is here due to not feeling well today. He states he began to feel dizzy and "intoxicated" since this AM. He has had trouble walking also and has fallen multiple times and his his head at least once. The patient does have a mild SPIVEY and neck pain also. The patient has been adjusting his Lamicatl recently and did lower it in the recent past. Today he did take his regular dose. The patient does have a long hx of seizures and has not had a seizure for a long time. MD Complaint: Fall Onset/Timin -: Days(s) Fall From: Standing Fall Witnessed: No Place Fall Occurred: Home Loss of Consciousness: None Prolonged Down Time?: No Location: Head, Neck Severity: Moderate Severity scale (1-10): 7 Associated Symptoms: Headache, Other - [place] Coma Scale Eye Response: (4) Open spontaneously Motor Response: (6) Obeys commands Verbal Response: (4) Confused conversation Ashlie Total: 14 - Related Data Home Medications Medication Instructions Recorded Confirmed Last Taken Alprazolam [Xanax] 0.25 mg PO QHS 07/11/19 07/11/19 Unknown Cariprazine HCl [Vraylar] 1.5 mg PO DAILY 07/11/19 07/11/19 Unknown Allergies Allergy/AdvReac Type Severity Reaction Status Date / Time No Known Drug Allergies Allergy Verified 07/11/19 13:48 Travel Screening - Travel/Exposure Within Last 30 Days Have you traveled within the last 30 days?: No Review of Systems Constitutional: Denies: Chills, Fever Eyes: Denies: Eye discharge ENT: Denies: Congestion Respiratory: Denies: Cough, Dyspnea Cardiovascular: Denies: Arrhythmia, Chest pain Endocrine: Denies: Fatigue Gastrointestinal: Denies: Nausea Genitourinary: Denies: Dysuria Musculoskeletal: Denies: Arthralgia Skin: Denies: Bruising Past Medical History - SOCIAL HISTORY Smoking Status: Former smoker Alcohol Use: None Drug Use: None - RESPIRATORY Hx Respiratory Disorders: No - CARDIOVASCULAR Hx Cardio Disorders: No - NEURO Hx Neuro Disorders: Yes 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 negative: Tonsillar erythema, Tonsillar exudate - Neck Neck exam: Normal inspection, Full ROM, Tenderness (There is mild posterior Cspine tenderness.) - Respiratory Respiratory exam: Normal lung sounds bilaterally. negative: Respiratory distress - Cardiovascular Cardiovascular Exam: Regular rate, Normal rhythm, Normal heart sounds - GI/Abdominal GI/Abdominal exam: Soft, Normal bowel sounds. negative: Tenderness - Extremities Extremities exam: Normal inspection, Full ROM, Normal capillary refill. negative: Tenderness - Neurological Neurological exam: Alert. negative: Abnormal gait, Motor sensory deficit, Oriented X3 (The patient is oriented to name, age, address and but not place and day. His states that is normal for him.) Course Vital Signs 07/11/19 13:40 Temperature 98.3 F Pulse Rate 81 Respiratory 20 Rate Blood Pressure 144/98 Pulse Ox 95 - Reevaluation(s) Reevaluation #1: The patient is doing better at this time and is only complaining of a SPIVEY. The patient now is stating he feels postictal and does feel that he may have had a seizure prior to all of this starting. That would also make sense due to the fact he did decrease his Lamictal dose recently on his own. He is resting comfortably and no longer is confused or dizzy. 07/11/19 15:06 Reevaluation #2: The patient is doing better at this time. He states his SPIVEY is improved and his dizziness is better. He is able to get up and walk but is still mildly ataxic. The patient is no longer confused and is answering all questions appropriately. He and his do feel this issue today is most likely due to having a seizure at home today. He normally is confused, ataxic and has a SPIVEY after his seizures and he feels this episode is normal for him. We will continue to hydrate him mildly and treat his SPIVEY and will discharge when his gait is improved. 07/11/19 15:58 Reevaluation #3: The patient is doing very well at this time. His SPIVEY is much better and his dizziness and ataxia are now gone. He is up walking normally with no problems and feels ready for going home. He is to make an appointment with his Seizure doctor in [place] tomorrow for recheck. 07/11/19 16:27 Medical Decision Making - Data Complexity MDM Data: Labs Ordered and/or Reviewed, X-Ray Ordered and/or Reviewed, EKG Ordered and/or Reviewed - Lab Data Result diagrams: 07/11/19 13:47 07/11/19 13:47 - EKG Data -: EKG Interpreted by Me EKG: No Acute Changes, Normal EKG - Radiology Data Radiology results: Report reviewed (Head and Cervical CT: Neg for any acute changes.) Disposition Disposition: Discharge Clinical Impression: Seizure Disposition: Home, Self-Care Condition: (2) Stable Instructions: Recurrent Seizures in Adults (ED) Additional Instructions: Please use Tylenol or Motrin for pain and please continue your regular doses of your medicines. Please see your doctor in [place] for recheck later this week. Return to the ER for any worsening issues, any falls or seizures. Forms: Patient Portal Access Time of Disposition: 16:30 Quality - Quality Measures Quality Measures: N/A - Blood Pressure Screening View Details: Yes Does Patient Have Any of the Following: No Blood Pressure Classification: Hypertensive Reading Systolic Measurement: 144 Diastolic Measurement: 98 Screening for High Blood Pressure: < First Hypertensive BP, F/U Documented > [G8950] First Hypertensive Follow-up Interventions: Referral to alternative/primary care provider.
[2019-07-11 14:09] LABS: ABSOLUTE NEUTROPHIL COUNT 7.69; BASO % 0.4 % (0-6); EOS % 0.1 % (0-6); GRAN % 72.5 % (47-80); HEMATOCRIT 47.3 % (42.0-52.0); LYMPH % 20.5 % (16-45); MEAN CELL VOLUME 89.9 fl (81-97); MEAN CORPUSCULAR HEMOGLOBIN 30.4 pg (27-33); MEAN CORPUSCULAR HGB CONC 33.8 g/dl (32-36); MEAN PLATELET VOLUME 9.3 fl (7.4-10.4); MONO % 6.5 % (0-9); PLATELET COUNT 367 K/uL (130-400); RED BLOOD COUNT 5.26 M/uL (4.40-5.70); RED CELL DISTRIBUTION WIDTH 13.3 % (11.5-14.5); URINE APPEARANCE CLEAR; URINE BILIRUBIN NEGATIVE (NEGATIVE); URINE BLOOD NEGATIVE (NEGATIVE); URINE COLOR YELLOW; URINE GLUCOSE (UA) NEGATIVE (NEGATIVE); URINE KETONE NEGATIVE (NEGATIVE); URINE LEUKOCYTE ESTERASE NEGATIVE (NEGATIVE); URINE NITRITE NEGATIVE (NEGATIVE); URINE PROTEIN NEGATIVE (NEGATIVE); URINE UROBILINOGEN 0.2 E.U./dL (0.20 - 1.00); WHITE BLOOD COUNT W/O DIFF 10.6 K/uL (4.2-12.2)
[2019-07-11 14:14] LABS: AMPHETAMINE SCREEN URINE NOT DETECTED; BARBITURATE SCREEN URINE NOT DETECTED; BENZODIAZEPINE SCREEN URINE NOT DETECTED; COCAINE SCREEN URINE NOT DETECTED; METHADONE SCREEN URINE NOT DETECTED; METHAMPHETAMINE SCREEN NOT DETECTED; OPIATE SCREEN URINE NOT DETECTED; OXYCODONE SCREEN URINE NOT DETECTED; PHENCYCLIDINE SCREEN URINE NOT DETECTED; PROPOXYPHENE SCREEN URINE NOT DETECTED; THC SCREEN URINE NOT DETECTED; TRICYCLIC ANTIDEPRESSANT SCRN NOT DETECTED
[2019-07-11 14:23] LABS: BLOOD UREA NITROGEN 10 mg/dL (6-20)
[2019-07-11 14:24] LABS: CREATININE 0.8 mg/dL (0.7-1.2); EST GLOMERULAR FILTRATION RATE > 60 mL/min; TOTAL PROTEIN 7.7 g/dL (6.6-8.7)
[2019-07-11 14:26] LABS: GLUCOSE,RANDOM 118 mg/dL (74-109)
[2019-07-11 14:29] LABS: ALB/GLOB RATIO 1.8 (1.1-1.8); ALBUMIN 4.9 g/dL (4.0-5.0); ALKALINE PHOSPHATASE 122 U/L (40-129); ALT/SGPT 48 U/L (<41); AST/SGOT 26 U/L (10.0-50.0)
[2019-07-11 14:39] LABS: THYROID STIMULATING HORMONE 1.89 uIU/mL (0.270-4.20)
--- NOTE | 2019-07-11 14:48 | CT SCAN REPORT ---
EXAMINATION: HEAD WO CONTRAST EXAM DATE: 07/11/2019 2:34 PM TECHNIQUE: Noncontrast axial images were obtained to the brain. INDICATION: trauma COMPARISON: 02/28/2017 ENCOUNTER: Not applicable HAND DOMINANCE: Unknown FINDINGS: The brain parenchyma is unremarkable for age. No loss of landin-white matter differentiation or sulcal effacement to indicate acute infarction. No evidence of intracranial mass. The ventricles, sulci, and subarachnoid spaces are unremarkable for age. The basal cisterns are paten t and there is no midline shift or herniation. No intra-axial or extra-axial fluid collection. No evidence of intracranial hemorrhage. The paranasal sinuses, mastoid air cells, and orbits are unremarkable. The calvarium is intact. IMPRESSION: 1. No CT evidence of intracranial hemorrhage or acute intracranial abnormality. Dictated by: ТАТЬЯНА YOU MD on 07/11/2019 2:44 PM. .
--- NOTE | 2019-07-11 14:50 | CT SCAN REPORT ---
EXAMINATION: CERVICAL SPINE WO CONTRAST EXAM DATE: 07/11/2019 2:35 PM TECHNIQUE: Without contrast spiral CT images were done from the foramen magnum to the upper thoracic spine. Sagittal and coronal 2-D reformats were made from source images. INDICATION: trauma. ENCOUNTER: Initial COMPARISON: Concurrent CT of the head FINDINGS: There is nonspecific reversal of the cervical spine lordosis with mild levocurvature. Vertebral body heights are preserved without evidence of acute fracture. No significant degenerative change. MR is more sensitive for soft tissue injury. IMPRESSION: 1. No evidence of fracture. 2. Nonspecific reversal of the cervical spine lordosis with mild levocurvature most commonly represe nts positioning or cervical strain. Dictated by: ТАТЬЯНА YOU MD on 07/11/2019 2:46 PM. .
[2019-07-11] MEDS ORDERED: ACETAMINOPHEN 1,000 MG/100 ML BTL IVPB ONE (14:55)
[2019-07-11] MEDS ORDERED: KETOROLAC 30 MG/ML VIAL IVP ONE (16:00)
== END 2019-07-11 16:45 | disposition home or self-care (01) ==
LOC: ER 13:39
DX: G40.409 Other generalized epilepsy and epileptic syndromes, not intractable, without status epilepticus (principal); S09.90XA Unspecified injury of head, initial encounter; R42 Dizziness and giddiness; R51 Headache; M54.2 Cervicalgia; W18.00XA Striking against unspecified object with subsequent fall, initial encounter; Y92.009 Unspecified place in unspecified non-institutional (private) residence as the place of occurrence of the external cause; Z87.891 Personal history of nicotine dependence
CPT/HCPCS: 70450; 72125; 80053; 80305; 80320; 81003; 84443; 85025; 93005; 93010; 96361; 96365; 96375; 99284; J1885; J7030